=== PATIENT | male | born 1990 | race Caucasian/White ===

== ENCOUNTER 2016-10-08 10:14 | Emergency (ER) ==
--- NOTE | 2016-10-08 12:02 | PROVIDER DOCUMENTATION ---
HPI-General Adult - General Chief Complaint: Nausea Stated Complaint: ABD/EPIGASTRIC PAIN Time Seen by Provider: 10/08/16 11:14 Source: patient Allergies/Adverse Reactions: Patient Allergies Allergy/AdvReac Type Severity Reaction Status Date / Time No Known Allergies Allergy Verified 10/08/16 10:41 - History of Present Illness -Gen Adult Nature of Presenting Problems: Pt. is 26 yom that presents with c/o abd pain for two days. The patient also reports he hasn't had a BM for two days. Pt. reports his GB has been removed. Pt. reports some nausea but no vomiting. Pt. denies any other symptoms. Location of Pain/Injury: reports: abdomen. denies: head, face, mouth, neck, chest, upper extremity, hand(s), back, pelvis, genitalia, lower extremity, feet , upper body, lower body, generalized Pain Radiation: reports: no radiation Quality of Pain: reports: aching. denies: burning, cramping, dull, fullness, indigestion, pressure, sharp, stabbing, tearing, throbbing, tightness Severity: reports: moderate. denies: mild, severe Onset/Duration: reports: gradual, 2 days ago Timing: reports: still present. denies: improving, gone now, resolved prior to arrival, intermittent, constant, changing over time, getting worse Context/Activities at Onset: reports: none. denies: recent emotional stress, recent physical stress, recent trauma history, possible bad food, cold exposure , out of country travel Modifying Factors: improves with: nothing Associated Symptoms: reports: constipation, nausea. denies: anxiety, arm pain, back/neck pain, chest pain, cough, diaphoresis, diarrhea, dizziness, EENT symptoms, fatigue, fever/chills, genitourinary problems, headaches, heartburn, joint pain, loss of appetite, malaise, muscle aches, sinus congestion/drainage, rash, seizure, shortness of breath, sensory/motor loss, pain with inspiration, swelling/mass in abdomen, syncope, vomiting, weakness, trouble walking Similar Symptoms Previously?: Yes Recently seen or treated by another doctor?: No Review of Systems - Adult - REVIEW OF SYSTEMS - ADULT Constitutional: reports: see HPI. denies: chills, fever, fatique Eyes: reports: see HPI. denies: discharge, blurred vision, double vision Ears, Nose, Mouth & Throat: reports: see HPI. denies: ear discharge, ear pain, nose pain, loose teeth, mouth/dental pain, throat swelling Cardiovascular: reports: see HPI. denies: chest pain, irregular heart rate, orthopnea, syncope Respiratory: reports: see HPI. denies: chronic cough, cough, dyspnea on exertion, pleurisy, shortness of breath, wheezing Gastrointestinal: reports: see HPI, abdominal pain, constipation, nausea. denies: hematemesis, diarrhea, frequent heartburn, vomiting Genitourinary: reports: see HPI. denies: dysuria, discharge, hematuria, hesitency, urgency Musculoskeletal: reports: see HPI. denies: bone pain, back pain, joint swelling , muscle aches, neck pain Integumentary: reports: see HPI. denies: hives, itching, nail changes, skin thickening Neurological: reports: see HPI. denies: ataxia, headache/migraines, numbness, seizure, tremors Psychiatric: reports: see HPI. denies: anxiety, depression, emotional problems , insomnia, panic attacks, suicidal thoughts Past History - Adult - PAST MEDICAL HISTORY-ADULT Review of Records: reports: Old Records Reviewed, Nursing Assessment Review, Medications Reviewed, Social history reviewed & non-contributory. Physical Exam-General - PHYSICAL EXAM-ADULT Initial Vital Signs Reviewed: Yes - CONSTITUTIONAL General Appearance: alert, mild distress, obese. negative: thin, anxious, lethargic, slow to respond, obtunded, combative - EYES Eyes: PERRL/EOMI, pink conjunctivae. negative: conjuctival exudate, photophobia , subconjunctival hemorrhage - HEAD, EARS, NOSE, MOUTH & THROAT HENMT: normocephalic/atraumatic, moist mucous membranes. negative: angioedema, frontal tenderness, maxillary tenderness - NECK Neck: non-tender, full range of motion, supple, normal inspection. negative: lymphadenopathy, trachial deviation, thyromegaly - RESPIRATORY Respiratory: lungs clear, normal breath sounds. negative: crackles, rales, rhonchi, stridor, wheezing - CARDIOVASCULAR Cardiovascular: normal peripheral pulses, regular rate, rhythm, no edema, no JVD , no murmur. negative: extra beats, friction rub, irregularly irregular - CHEST (BREASTS) Chest/Breast: deferred - GASTROINTESTINAL (ABDOMEN) Abdominal Exam: soft, abnormal bowel sounds (hypoactive), tenderness. negative : distended, guarding, rigid, rebound, hernia, mass - GENITOURINARY Male Genitalia: deferred Rectal Exam: deferred Hemoccult Exam: deferred - LYMPHATIC Lymphatic: no adenopathy. negative: axilla node tender, cervical node tenderness - MUSCULOSKELETAL Back Exam: normal inspection, no CVA tenderness, no vertebral tenderness. negative: ecchymosis, muscle spasm, vertebral tenderness Extremity: normal range of motion, non-tender, normal gait, normal inspection. negative: deformity, erythema, inflammation, swelling, tenderness Peripheral Pulses: radial (R): 2+, radial (L): 2+ - SKIN Integumentary: normal color, normal turgor, warm/dry. negative: cyanosis, diaphoresis, ecchymosis, erythema, mottled, pallor, petechiae, purpura, rash, swelling, tenderness - NEUROLOGIC Neurologic: grossly normal, no motor/sensory deficits. negative: aphasia, facial droop, focal weakness, motor weakness, sensory deficit - PSYCHIATRIC Psych/Mental Status: normal mood/affect, normal thought content, normal thought process, oriented x 3. negative: anxious, paranoid, tearful Progress - PLAN OF CARE/RESULTS Progress/Plan/Lab Results: Discussed results and plan of care with patient. Patient agrees with plan and verbalizes understanding. Vital Signs Temp Pulse Resp BP Pulse Ox 10/08/16 10:37 98.3 F 81 19 138/084 99 No Known Allergies Allergy (Verified 10/08/16 10:41) No Home Medications 10/08/16 Laboratory 10/08/16 10/08/16 10/08/16 12:10 11:50 11:50 WBC 6.61 RBC 4.85 Hgb 13.5 L Hct 41.1 L MCV 84.7 MCH 27.8 MCHC 32.8 L RDW Std Deviation 14.6 H Plt Count 303 MPV 9.0 Immature Gran % (Auto) 0.3 Neut % (Auto) 64.2 Lymph % (Auto) 17.2 L [place] % (Auto) 12.4 H Eos % (Auto) 5.6 Baso % (Auto) 0.3 Immature Gran # (Auto) 0.02 Neut # (Auto) 4.24 Lymph # (Auto) 1.14 L [place] # (Auto) 0.82 H Eos # (Auto) 0.37 Baso # (Auto) 0.02 Sodium 138 Potassium 4.0 Chloride 105 Carbon Dioxide 27 Anion Gap 7 BUN 15 Creatinine 0.7 Estimated GFR/1.73 m2 > 60 BUN/Creatinine Ratio 21 Glucose 87 Calculated Osmolality 276 Calcium 8.6 L Total Bilirubin 0.40 AST 21 ALT 25 Alkaline Phosphatase 66 Total Protein 6.6 Albumin 3.8 Globulin 3.0 Albumin/Globulin Ratio 1.0 Amylase 23 Lipase 23 Urine Source CLEAN CATCH Urine Color YELLOW Urine Clarity CLEAR Urine pH 6.5 Ur Specific [place] 1.020 Urine Protein TRACE A Urine Ketones NEGATIVE Urine Blood NEGATIVE Urine Nitrite NEGATIVE Urine Bilirubin NEGATIVE Urine Urobilinogen NORMAL Urine Microscopic RBC Not Reportable Urine WBC TRACE A Urine Microscopic WBC <10 Ur Epithelial Cells <10 Urine Bacteria 1+ Urine Glucose NEGATIVE Orders Category Date Time Status FLAT/UPRIGHT ABD/1 VIEW CHEST [RAD] Stat Exams 10/08/16 12:02 Taken AMYLASE [CHEM] Stat Lab 10/08/16 11:50 Completed CBC WITH ELECTRONIC DIFF [HEME] Stat Lab 10/08/16 11:50 Completed COMPREHENSIVE METABOLIC PANEL [CHEM] Stat Lab 10/08/16 11:50 Completed LIPASE [CHEM] Stat Lab 10/08/16 11:[address] [URINALYSIS] Stat Lab 10/08/16 12:10 Completed URINE MICROSCOPIC [URINALYSIS] Stat Lab 10/08/16 12:10 Completed Laboratory Tests 10/08/16 10/08/16 10/08/16 11:50 11:50 12:10 WBC 6.61 RBC 4.85 Hgb 13.5 L Hct 41.1 L MCV 84.7 MCH 27.8 MCHC 32.8 L RDW Std Deviation 14.6 H Plt Count 303 MPV 9.0 Immature Gran % (Auto) 0.3 Neut % (Auto) 64.2 Lymph % (Auto) 17.2 L [place] % (Auto) 12.4 H Eos % (Auto) 5.6 Baso % (Auto) 0.3 Immature Gran # (Auto) 0.02 Neut # (Auto) 4.24 Lymph # (Auto) 1.14 L [place] # (Auto) 0.82 H Eos # (Auto) 0.37 Baso # (Auto) 0.02 Sodium 138 Potassium 4.0 Chloride 105 Carbon Dioxide 27 Anion Gap 7 BUN 15 Creatinine 0.7 Estimated GFR/1.73 m2 > 60 BUN/Creatinine Ratio 21 Glucose 87 Calculated Osmolality 276 Calcium 8.6 L Total Bilirubin 0.40 AST 21 ALT 25 Alkaline Phosphatase 66 Total Protein 6.6 Albumin 3.8 Globulin 3.0 Albumin/Globulin Ratio 1.0 Amylase 23 Lipase 23 Urine Source CLEAN CATCH Urine Color YELLOW Urine Clarity CLEAR Urine pH 6.5 Ur Specific [place] 1.020 Urine Protein TRACE A Urine Ketones NEGATIVE Urine Blood NEGATIVE Urine Nitrite NEGATIVE Urine Bilirubin NEGATIVE Urine Urobilinogen NORMAL Urine Microscopic RBC Not Reportable Urine WBC TRACE A Urine Microscopic WBC <10 Ur Epithelial Cells <10 Urine Bacteria 1+ Urine Glucose NEGATIVE - XRAY 1 XRAY Study: Chest, Abdomen XRAY Interpretation: Constipation (Mendez) Departure - Departure Time of Disposition Order: 12:42 DIAGNOSIS: Abdominal pain Qualifiers: Abdominal location: generalized Qualified Code(s): R10.84 - Generalized abdominal pain Constipation Qualifiers: Constipation type: unspecified constipation type Qualified Code(s): K59.00 - Constipation, unspecified Disposition: HOME 01 Certified Medical Emergency: Emergent Condition: Stable Additional Instructions: Follow up with primary care physician Take medications as directed Return to ED for any concerns or worsening of symptoms ED Follow Up Instructions: You have been treated by a care provider in the Emergency Department. These instructions are being provided to you so you can have an understanding of how to care for yourself upon discharge. Upon discharge from the Emergency Department, you are responsible for making arrangements for follow-up care by a physician of your choice. Take all prescribed medications as directed. Return to the Emergency Department immediately for any new or worsening symptoms. You may call the Physician Referral phone number at [phone] to obtain a list of Physicians who are taking new patients. Prescriptions: Magnesium Citrate [Citrate of Magnesia] 300 ml PO ONCE #1 bottle Docusate Sodium [Colace] 100 mg PO DAILY #10 capsule Na Phos,M-B/Na Phos,Di-Ba [Fleet Enema] 133 ml NH HS PRN PRN #3 enema PRN Reason: Constipation Attestation - Physician/ Mid-level Attestation Patient care was provided by Mid-level provider ([employer]/PA):: Yes Mid-level provider:: Melisa Simms Mid-level documentation review:: The Mid-level provider documentation, treatment plan and medical decision making was reviewed by the physician who agrees with all treatment and medical decision making by the MLP.
[2016-10-08 12:05] LABS: MANUAL DIFF NEEDED? NO
[2016-10-08 12:12] LABS: BASO% 0.3 % (0.0-0.8); EOS# 0.37 X1000 (0.0-0.7); EOS% 5.6 % (0.0-10.0); HEMATOCRIT 41.1 % (42.0-52.0); HEMOGLOBIN 13.5 g/dL (14.0-18.0); IMM GRAN# 0.02 X1000 (0.0-0.04); IMM GRAN% 0.3 % (0.0-0.5); LYMPH# 1.14 X1000 (1.2-3.4); LYMPH% 17.2 % (20.5-51.1); MCH 27.8 PG (27-31); MCHC 32.8 g/dL (33-37); MCV 84.7 FL (81-99); MONO# 0.82 X1000 (0.11-0.59); MONO% 12.4 % (1.7-9.3); NEUT% 64.2 % (42.2-75.2); PLT 303 X1000 (130-400); RBC 4.85 XMIL (4.7-6.1)
[2016-10-08 12:20] LABS: URINE SOURCE CLEAN CATCH
[2016-10-08 12:31] LABS: BILIRUBIN URINE NEGATIVE (NEGATIVE); BLOOD URINE NEGATIVE (NEGATIVE); CLARITY CLEAR (CLEAR); COLOR YELLOW; GLUCOSE URINE NEGATIVE (NEGATIVE); LEUKOCYTES URINE TRACE (NEGATIVE); NITRITE URINE NEGATIVE (NEGATIVE); PH URINE 6.5; PROTEIN URINE TRACE mg/dL (NEGATIVE); URINE MICROSCOPIC NEEDED? YES; UROBILINOGEN URINE NORMAL
[2016-10-08 12:33] LABS: URINE EPITHELIAL CELLS <10 /HPF (<10); URINE WBC <10 /HPF (<10)
[2016-10-08 12:34] LABS: AGAP 7; ALBUMIN 3.8 g/dL (3.5-5.0); ALKALINE PHOSPHATASE 66 U/L (32-122); AMYLASE 23 U/L (20-200); BUN 15 mg/dL (8-22); CALCIUM 8.6 mg/dL (8.8-10.2); CHLORIDE 105 mmol/L (98-107); COSMO 276; GOT 21 U/L (10-34); GPT 25 U/L (10-44); LIPASE 23 U/L (13-60); SODIUM 138 mmol/L (136-145); TCO2 27 mmol/L (25-35); TOTAL PROTEIN 6.6 g/dL (6.3-8.3)
[2016-10-08 12:55] VITALS: BP 140/85
--- NOTE | 2016-10-08 13:00 | Diag Imaging Result Document ---
PROCEDURE NAME: FLAT/UPRIGHT ABD/1 VIEW CHEST - 10/08/2016 FRONTAL CHEST X-RAY AND TWO VIEWS OF THE ABDOMEN: COMPARISON: None. FINDINGS: There is abnormal contour of the right side of the mediastinum at the level of the distal trachea. This is smooth. Otherwise, the lungs are clear and the heart size is normal. No pneumothorax or pleural effusion. There are cholecystectomy clips. No bowel obstruction or free air. IMPRESSION: 1. Abnormal curvature of the right paratracheal mediastinum. This is indeterminate. Likely vascular in origin although there are other possibilities. Consider CT scanning the chest. 2. No acute process in the abdomen.
== END 2016-10-08 12:54 | disposition home or self-care (01) ==
LOC: P.ED 10:14
DX: K59.00 Constipation, unspecified (principal); R10.84 Generalized abdominal pain; R10.13 Epigastric pain; R11.0 Nausea; R19.15 Other abnormal bowel sounds; R10.819 Abdominal tenderness, unspecified site; E66.9 Obesity, unspecified; Z90.49 Acquired absence of other specified parts of digestive tract
CPT/HCPCS: 36415; 74022; 80053; 81001; 82150; 83690; 85025; 99283

== ENCOUNTER 2016-12-01 14:47 | Emergency (ER) ==
[2016-12-01 15:05] VITALS: BP 154/73
[2016-12-01] MEDS ORDERED: FIORICET PO ONE (15:39)
[2016-12-01] MEDS ORDERED: ZOFRAN PO ONE (15:39)
--- NOTE | 2016-12-01 15:41 | PROVIDER DOCUMENTATION ---
HPI-Headache - General Chief Complaint: Headache Stated Complaint: HEADACHE Time Seen by Provider: 12/01/16 15:33 Source: patient Allergies/Adverse Reactions: Patient Allergies Allergy/AdvReac Type Severity Reaction Status Date / Time No Known Allergies Allergy Verified 10/08/16 10:41 Home Medications: Home Medication List Medication Instructions Recorded Confirmed Last Taken Type Butalbital/Acetaminophen [Bupap 50 1 each PO 2-4XDAY PRN PRN #7 tablet 12/01/16 Unknown Rx mg-300 mg Tablet] Promethazine [Phenergan] 25 mg PO Q6H PRN PRN #7 tablet 12/01/16 Unknown Rx - History of Present Illness-Headache Nature of Presenting Problem: 26 y/o WM c/o MARIANO, N/V x 3 days. Pt states his employer wanted him to be checked for influenza. Pt states total of 3 episodes of vomiting in last 3 days. Denies fever/chills, abd. pain, diarrhea, sore throat, cough, congestion. States taking advil and wine; wine is helping more than advil. Asked for work excuse for tomorrow. Review of Systems - Adult - REVIEW OF SYSTEMS - ADULT Constitutional: reports: no symptoms reported. denies: chills, fever Eyes: reports: no symptoms reported. denies: blurred vision, double vision Ears, Nose, Mouth & Throat: reports: no symptoms reported. denies: nose pain, throat pain Cardiovascular: reports: no symptoms reported. denies: chest pain, palpitations Respiratory: reports: no symptoms reported. denies: dyspnea on exertion, shortness of breath Gastrointestinal: reports: see HPI, nausea, vomiting. denies: abdominal pain, constipation, diarrhea Genitourinary: reports: no symptoms reported. denies: dysuria, frequency Musculoskeletal: reports: no symptoms reported. denies: joint pain, joint swelling Integumentary: reports: no symptoms reported. denies: nail changes, rash Neurological: reports: see HPI, headache/migraines. denies: numbness, paresthesia Psychiatric: reports: no symptoms reported Endocrine: reports: no symptoms reported. denies: cold intolerance, heat intolerance Hematologic/Lymphatic: reports: no symptoms reported. denies: easy bruising, prolonged bleeding Allergic/Immunologic: reports: no symptoms reported All Other Systems: Reviewed and Negative Past History - Adult - PAST MEDICAL HISTORY-ADULT Review of Records: reports: Nursing Assessment Review, Medications Reviewed - SOCIAL HISTORY Smoking: denies Physical Exam- Neurological - Physical Exam-Neuro Initial Vital Signs Reviewed: Yes General Appearance: alert, mild distress, obese Eye Exam: bilateral eye: normal inspection, PERRL, EOMI HENMT: normocephalic/atraumatic, moist mucous membranes, pharynx normal Head Injury: no evidence of injury Neck: full range of motion, supple, normal inspection. negative: C-spine tenderness Respiratory: lungs clear, normal breath sounds. negative: crackles, rales, rhonchi, stridor, wheezing Cardiovascular: regular rate, rhythm. negative: bradycardia, tachycardia Abdominal Exam: normal bowel sounds, non tender, soft. negative: distended, guarding, rigid Extremity: normal gait clothes model Exam: normal hearing, normal speech, PERRL. negative: abnormal eye position , abnormal pupil position, abnormal speech, facial asymmetry, facial droop, facial paresthesias, facial weakness, gaze palsy, hearing deficit (R), hearing deficit (L), tongue deviation to R, tongue deviation to L Coordination/Gait: normal gait Motor/Sensory: negative: sensory deficit, weak motor strength RUE, weak motor strength LUE Neurologic: clothes model II-XII nml as tested Integumentary: normal color, normal turgor, warm/dry Psych/Mental Status: normal mood/affect, normal thought content, normal thought process, oriented x 3 Departure - Departure Time of Disposition Order: 15:39 DIAGNOSIS: Headache Qualifiers: Headache type: unspecified Headache chronicity pattern: acute headache Intractability: not intractable Qualified Code(s): R51 - Headache DIAGNOSIS: (Ruled Out): Influenza Disposition: HOME 01 Certified Medical Emergency: Emergent Condition: Stable Additional Instructions: Take medications as directed. Follow up with PCP if symptoms persist. Drink plenty of fluids. ED Follow Up Instructions: You have been treated by a care provider in the Emergency Department. These instructions are being provided to you so you can have an understanding of how to care for yourself upon discharge. Upon discharge from the Emergency Department, you are responsible for making arrangements for follow-up care by a physician of your choice. Take all prescribed medications as directed. Return to the Emergency Department immediately for any new or worsening symptoms. You may call the Physician Referral phone number at [phone] to obtain a list of Physicians who are taking new patients. Prescriptions: Butalbital/Acetaminophen [Bupap 50 mg-300 mg Tablet] 1 each PO 2-4XDAY PRN PRN # 7 tablet PRN Reason: Pain Promethazine [Phenergan] 25 mg PO Q6H PRN PRN #7 tablet PRN Reason: Nausea Referrals: None,PCP [Primary Care Provider] - Forms: Return to School/Parent Work Instructions: Migraine Headache, [id number] Attestation - Physician/ MICHAEL Attestation Patient care was provided by Advanced Practice Provider:: Yes Advanced Practice Provider:: Joleen Pina Advanced Practice Provider documentation review:: The Mid-level provider documentation, treatment plan and medical decision making was reviewed by the physician who agrees with all treatment and medical decision making by the MLP.
[2016-12-01] MEDS ORDERED: ZOFRAN ODT ONE (15:56)
== END 2016-12-01 16:00 | disposition home or self-care (01) ==
LOC: P.ED 14:47
DX: R51 Headache (principal); R11.2 Nausea with vomiting, unspecified; E66.9 Obesity, unspecified
CPT/HCPCS: 87804; 99283